=== PATIENT | male | born 1985 | race Two or more races ===

== ENCOUNTER 2018-10-05 17:58 | Emergency (ER) | payer SELFPAY ==
[~2018-10-05] VITALS: Ht 180.3 cm; Wt 85.0 kg
--- NOTE | 2018-10-05 18:17 | NUR ---
PT AMBULATORY TO ROOM. STATES HE HAS BEEN HAVING PAIN ON HIS LEFT FLANK RADIATING AROUND TO GROIN SINCE 0500 THIS MORNING. STATES IT FEELS LIKE A KIDNEY STONE HE HAS HAD ONE BEFORE. PT STATES THE PAIN IS 5/10 PAIN AT THIS TIME AND THAT IT [place] WHEN HE URINATES. PT AMBULATORY TO BATHROOM TO PROVIDE URINE SAMPLE. PT CHANGING INTO GOWN AT THIS TIME.
--- NOTE | 2018-10-05 18:27 | NUR ---
PT CONNECTED TO MONITORS. 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 OUMOU. PT RESTING ON GURNEY. DENIES NEEDS AT THIS TIME.
[2018-10-05 18:42] LABS: MICROSCOPIC NOT IND
[2018-10-05 18:45] LABS: CULTURE INDICATED? NO
--- NOTE | 2018-10-05 18:55 | NUR ---
pt in ct at this time.
[2018-10-05 19:04] LABS: BASOPHILS # (AUTO) 0.01 x10^3/uL (0-0.1); BASOPHILS % (AUTO) 0 % (0-1); EOSINOPHILS # (AUTO) 0.05 x10^3/uL (0-0.4); EOSINOPHILS % (AUTO) 1 % (1-7); LYMPHOCYTES # (AUTO) 1.93 x10^3/uL (1-3.4); LYMPHOCYTES % (AUTO) 22 % (22-44); MD NO; MEAN CORPUSCULAR HEMOGLOBIN 31.1 pg (27.5-34.5); MEAN CORPUSCULAR HGB CONC 33.8 g/dL (33.2-36.2); MEAN CORPUSCULAR VOLUME 91.8 fL (81-97); MEAN PLATELET VOLUME 6.8 fL (7.4-10.4); MONOCYTES # (AUTO) 0.58 x10^3/uL (0.2-0.8); MONOCYTES % (AUTO) 7 % (2-9); NEUTROPHILS # (AUTO) 6.19 x10^3/uL (1.8-6.8); NEUTROPHILS % (AUTO) 71 % (42-75); PLATELET COUNT 369 x10^3/uL (130-400); RED BLOOD COUNT 4.99 x10^6/uL (4.38-5.82); RED CELL DISTRIBUTION WIDTH 13.6 % (9.4-14.8)
[2018-10-05 19:06] LABS: ALBUMIN 4.1 g/dL (3.4-5.0); ANION GAP 5 mmol/L (5-15); CHLORIDE 108 mmol/L (98-107); CREATININE 1.02 mg/dL (0.7-1.3)
[2018-10-05 19:27] VITALS: BP 121/74
== END 2018-10-05 19:36 | disposition home or self-care (01) ==
LOC: ED 19:15
DX: R10.32 Left lower quadrant pain (principal); R11.2 Nausea with vomiting, unspecified; R30.0 Dysuria; Z88.0 Allergy status to penicillin
CPT/HCPCS: 36415; 74176; 80048; 81003; 82040; 85025; 99284

== ENCOUNTER 2019-08-05 12:47 | Emergency (ER) | payer SELFPAY ==
[~2019-08-05] VITALS: Ht 180.3 cm; Wt 98.9 kg
[2019-08-05 12:54] VITALS: BP 137/86
--- NOTE | 2019-08-05 13:52 | NUR ---
TASK RN: Patient/Caregiver given discharge instructions and they have confirmed that they understand the instructions. Patient ambulatory with steady gait.
== END 2019-08-05 14:21 | disposition home or self-care (01) ==
LOC: ED 13:55
DX: R22.9 Localized swelling, mass and lump, unspecified (principal); M79.671 Pain in right foot
CPT/HCPCS: 99284

== ENCOUNTER 2020-10-01 10:58 | Emergency (ER) | payer SELFPAY ==
[~2020-10-01] VITALS: Ht 180.3 cm; Wt 86.4 kg
[2020-10-01 11:19] VITALS: BP 138/97
--- NOTE | 2020-10-01 11:29 | NUR ---
Patient/Caregiver given discharge instructions and they have confirmed that they understand the instructions. Patient ambulatory with steady gait. NAD, all questions answered appropriately, denies additional needs at this time. No personal belongings left in room after discharge.
== END 2020-10-01 11:30 | disposition home or self-care (01) ==
LOC: ED 11:15
DX: J01.00 Acute maxillary sinusitis, unspecified (principal); H02.821 Cysts of right upper eyelid
CPT/HCPCS: 99283